=== PATIENT | female | born 1965 | race Caucasian/White ===

== ENCOUNTER 2017-04-16 22:28 | Inpatient (IN) | payer MEDICAID, OTHER ==
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
[2017-04-16 23:02] LABS: BASO # 0.1 K/uL (0.0-0.2); BASO % 0.9 % (0.0-2.0); EOS # 0.1 K/uL (0.0-0.7); HEMATOCRIT 31.2 % (34.0-47.0); LYMPH # 2.8 K/uL (1.0-4.3); LYMPH % 33.1 % (20.0-40.0); MEAN CELL VOLUME 74.9 fL (81.0-99.0); MEAN CORPUSCULAR HEMOGLOBIN 24.6 pg (27.0-31.0); MEAN CORPUSCULAR HGB CONC 32.8 g/dL (33.0-37.0); MEAN PLATELET VOLUME 7.7 fL (7.2-11.7); MONO # 0.5 K/uL (0.0-0.8); MONO % 6.4 % (0.0-10.0); RED CELL DISTRIBUTION WIDTH 16.5 % (11.5-14.5); WHITE BLOOD COUNT 8.4 K/uL (4.8-10.8)
[2017-04-16 23:09] LABS: CHLORIDE 103 mmol/L (98-107); SODIUM 138 mmol/L (132-148)
[2017-04-16 23:11] LABS: BILIRUBIN,TOTAL 0.4 mg/dL (0.2-1.3); GFR AFRICAN-AMERICAN > 60
[2017-04-16 23:12] LABS: ALB/GLOB RATIO 1.3 (1.0-2.1); ALKALINE PHOSPHATASE 64 U/L (38-126); ALT/SGPT 26 U/L (9-52); AST/SGOT 19 U/L (14-36); BLOOD UREA NITROGEN 15 mg/dL (7-17); CALCIUM 9.2 mg/dl (8.6-10.4); CARBON DIOXIDE 23 mmol/L (22-30); GLUCOSE,RANDOM 94 mg/dL (65-105); TOTAL PROTEIN 7.7 g/dL (6.3-8.3)
[2017-04-16 23:13] LABS: ALCOHOL SERUM < 10 mg/dl (0-10)
[2017-04-16 23:47] LABS: RBC URINE 9 /hpf (0-3); URINE BACTERIA MOD (<OCC); URINE BILIRUBIN NEGATIVE (NEGATIVE); URINE BLOOD 1+ (NEGATIVE); URINE COLOR Straw (YELLOW); URINE GLUCOSE (UA) NORMAL (Normal); URINE KETONE NEGATIVE (NEGATIVE); URINE LEUKOCYTE ESTERASE TRACE Leu/uL (Negative); URINE PROTEIN NEGATIVE (NEGATIVE); URINE UROBILINOGEN NORMAL mg/dL (0.2-1.0); WBC URINE 11 /hpf (0-5)
--- NOTE | 2017-04-17 05:37 | PCM.BM ---
Treatment assets and liabiliti Patient Assests: cooperative, educated, insightful, resourceful, self-reliant, ADL independent, negotiates basic needs, strong glenna Patient Liabilities: poor support system, relationship conflicts
--- NOTE | 2017-04-17 05:41 | PCM.BM ---
<Ivis De La Torre - Last Filed: 04/17/17 05:39> Treatment assets and liabiliti Patient Assests: cooperative, educated, insightful, resourceful, self-reliant, ADL independent, negotiates basic needs, strong glenna Patient Liabilities: poor support system, relationship conflicts - Milieu Protocol Maintain good personal hygiene: daily Encourage regular showers, daily Remind patient to perform daily oral care, every other day Encourage regular showers Maintain personal safety: other Educate patient to report safety concerns to staff (prn) Medication safety: Monitor for expected outcome, potential side effects: every shift, daily, Assess barriers to learning: daily, every shift, Assess readiness for medication education: daily, every shift <Bree Rankin - Last Filed: 04/17/17 11:04> Family Contact Family involvement: Family/SO is involved Family contact: Patient declines to allow family contact at present - Goals for Treatment Patient goals for treatment: no comment Discharge/Continuing Care - Education Needs Education Needs: Patient Medication, Patient Coping Skills - Discharge Discharge Criteria: Tolerates medication w/o severe side effects, Free of Suicidal thoughts Discharge to:: Home, With Family - Treatment Team Participation Discussed with Family/SO: No Was Patient/Family/SO present at Treatment Team Meeting: Yes <Lidia Hernandez - Last Filed: 04/17/17 11:11> - Diagnosis (1) Major depressive disorder, recurrent severe without psychotic features Status: Acute Interventions: 04/17/17 11:11 * Assess/adjust medications daily and /or as needed * See patient on an individual basis 7x/week to assess level of depressive behaviors and stability * Discuss risks, benefits, side effects and alternatives of medications *
--- NOTE | 2017-04-17 05:54 | PCM.BM ---
Treatment Plan Problems - Problems identified on initial assessmt Problem 1 Date Initiated: 04/17/17 Status: Active Priority: 1 Problem 3 Date Initiated: 04/17/17 Status: Active Priority: 2 anxiety Status: Active Problem 2 Date Initiated: 04/17/17 Status: Active Treatment assets and liabiliti Patient Assests: cooperative, educated, insightful, resourceful, self-reliant, ADL independent, negotiates basic needs, strong glenna Patient Liabilities: poor support system, relationship conflicts - Milieu Protocol Maintain good personal hygiene: daily Encourage regular showers, daily Remind patient to perform daily oral care, every other day Encourage regular showers Maintain personal safety: other Educate patient to report safety concerns to staff (prn) Medication safety: Monitor for expected outcome, potential side effects: every shift, daily, Assess barriers to learning: daily, every shift, Assess readiness for medication education: daily, every shift
--- NOTE | 2017-04-17 07:18 | RAD ---
PROCEDURE: CHEST RADIOGRAPH, 1 VIEW HISTORY: Detox/Psy COMPARISON: Portable chest 12/03/2015. FINDINGS: LUNGS: Clear. PLEURA: No pneumothorax or pleural fluid seen. CARDIOVASCULAR: Normal. OSSEOUS STRUCTURES: No significant abnormalities. VISUALIZED UPPER ABDOMEN: Normal. OTHER FINDINGS: None. IMPRESSION: No acute cardiopulmonary pulmonary disease or significant interval change.
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
[2017-04-17 16:00] VITALS: RESP 20
--- NOTE | 2017-04-18 09:54 | PCM.PYCHPN ---
Psychiatric Progress Note - Psychiatric Progress Note Patient Chief Complaint: I am feeling depressed and suicidal .' Mental Status Examination - Cognitive Function Orientation: Person, Place, Situation, Time - Mood Mood: Depressed, Anxious - Affect Affect: Constricted, Depressed - Formal Thought Process Formal Thought Process: No Impairment - Homicidal Ideation Homicidal Ideation: No Goal/Treatment Plan - Goal/Treatment Plan Progress Toward Problem(s) and Goals/Treatment Plan: Major depressive disorder recurrent severe without psychotic features CBT Psychoeducation Supportive therapy Paxil 40 gm PO Daily Trazodone 50 mg PO QHS Remeron 15 mg pO QHS
--- NOTE | 2017-04-18 13:00 | CARD ---
APPROVED REPORT EKG Measurement Heart [id number] <Conclusion> Normal sinus rhythm ST & T wave abnormality, consider inferior ischemia Abnormal ECG
[2017-04-19 07:36] VITALS: BP 101/63; PULSE 80; TEMP 97.4
[2017-04-19 08:02] VITALS: O2SAT 99
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
== END 2017-04-19 12:00 | disposition home or self-care (01) | DRG 885 ==
LOC: C.ER 22:28 → EEVIPCON 04-17 00:53 → C.5E 04-17 00:53
PROVIDERS: ADMIT Psychiatry & Neurology Psychiatry; ATTEND Psychiatry & Neurology Psychiatry
PROC: GZ58ZZZ Individual Psychotherapy, Cognitive-Behavioral (ICD-10-PCS; principal; 2017-04-17)
PROC: GZ56ZZZ Individual Psychotherapy, Supportive (ICD-10-PCS; 2017-04-17)
DX: F33.2 Major depressive disorder, recurrent severe without psychotic features (principal); F41.9 Anxiety disorder, unspecified

== ENCOUNTER 2017-12-21 21:58 | Emergency (ER) | payer OTHER ==
[2017-12-21 21:59] VITALS: BMI 22.6
[2017-12-21 22:24] VITALS: BP 142/88; PULSE 94; RESP 20; TEMP 98.1; O2SAT 99
--- NOTE | 2017-12-21 23:10 | C.PDOC ---
History Of Present Illness 52 year old female presents to the ED c/o pain and swelling to her left ankle. Patient reports she missed a step which caused her to trip down stairs and twist her left ankle. 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 Patient denies fever, chill, nausea, vomit, LOC, weakness, numbness. Time Seen by Provider: 12/21/17 22:29 Chief Complaint (Nursing): Lower Extremity Problem/Injury History Per: Patient History/Exam Limitations: no limitations Onset/Duration Of Symptoms: Hrs Current Symptoms Are (Timing): Still Present Recent travel outside of the [place]: No Additional History Per: Patient - Ankle/Foot Description Of Injury: Twisted Currently Unable To: Bend Or Move Alleviating Factor(s): OTC Pain Medication Past Medical History Reviewed: Historical Data, Nursing Documentation, Vital Signs Vital Signs: Last Vital Signs Temp 98.1 F 12/21/17 22:20 Pulse 94 H 12/21/17 22:20 Resp 20 12/21/17 23:13 BP 142/88 12/21/17 22:20 Pulse Ox 99 12/21/17 23:11 - Medical History PMH: Anxiety, Depression Denies: Diabetes, Hepatitis, HIV, HTN, Osteoporosis, Chronic Kidney Disease, Seizures, Sexually Transmitted Disease Surgical History: Coronary Stent - [facility] Procedures INDIVIDUAL PSYCHOTHERAPY, COGNITIVE-BEHAVIORAL (04/17/17) INDIVIDUAL PSYCHOTHERAPY, SUPPORTIVE (04/17/17) MEASURE OF CARDIAC SAMPL & PRESSURE, L HEART, PERC APPROACH (12/04/15) PLAIN RADIOGRAPHY OF LEFT HEART USING LOW OSMOLAR CONTRAST (12/04/15) Family History: States: Unknown Family Hx - Social History Hx Alcohol Use: No Hx Substance Use: No Review Of Systems Constitutional: Negative for: Fever, Chills Eyes: Negative for: Vision Change Cardiovascular: Negative for: Chest Pain Respiratory: Negative for: Shortness of Breath Musculoskeletal: Positive for: Foot Pain Skin: Negative for: Rash Neurological: Negative for: Weakness, Numbness Physical Exam - Physical Exam Appears: Non-toxic, No Acute Distress Skin: Normal Color, Warm, Dry Head: Atraumatic, Normacephalic Eye(s): bilateral: Normal Inspection Extremity: Tenderness (left lateral malleolus), Capillary Refill (<2 seconds), Swelling (minimal left lateral malleolus) Extremity: Bilateral: Normal Color And Temperature, Normal ROM (with a limp due to pain) Pulses: Left Dorsalis Pedis: Normal, Right Dorsalis Pedis: Normal Neurological/Psych: Oriented x3, Normal Speech Gait: Steady (with a limp) ED Course And Treatment O2 Sat by Pulse Oximetry: 99 (ON RA) Pulse Ox Interpretation: Normal - Other Rad Left ankle X-Ray X-Ray: Interpreted by Me, Viewed By Me Interpretation: No fracture or dislocation seen Progress Note: Plan: - Left ankle X-Ray. Patient was placed on an Marvin wrap, was offered curtches but she refused them stating she had a pair at home. On reassessment, patient is resting comfortably, and is in no acute distress. Patient was instructed to follow up with physician/clinic in 1-2 days for further evaluation. Disposition Counseled Patient/Family Regarding: Studies Performed (Ankle XR), Diagnosis, Need For Followup - Disposition Referrals: Eddie Flores MD [Staff Provider] - Disposition: HOME/ ROUTINE Disposition Time: 23:06 Condition: STABLE Additional Instructions: Please follow up with PMD for ortho referral as needed Continue ibuprofen PO Elevate leg/ ICE Return to ER if worse Instructions: Ankle Sprain (DC) Forms: [employer] (Estonian) - Clinical Impression Clinical Impression: Left ankle sprain - PA / DYE FEEDER / Resident Statement MD/DO has reviewed & agrees with the documentation as recorded. - Scribe Statement The provider has reviewed the documentation as recorded by the Scribe Greg Clark All medical record entries made by the Scribe were at my direction and personally dictated by me. I have reviewed the chart and agree that the record accurately reflects my personal performance of the history, physical exam, medical decision making, and the department course for this patient. I have also personally directed, reviewed, and agree with the discharge instructions and disposition.
--- NOTE | 2017-12-22 13:00 | RAD ---
PROCEDURE: Left Ankle Radiographs. HISTORY: Posttraumatic pain COMPARISON: None FINDINGS: BONES: Normal. No fracture. JOINTS: Normal. No osteoarthritis. Ankle mortise maintained. Talar dome intact SOFT TISSUES: Normal. OTHER FINDINGS: None. IMPRESSION: Normal left ankle radiographs. Concordant results with the preliminary interpretation rendered by the emergency department physician procedure.
== END 2017-12-21 23:13 | disposition home or self-care (01) ==
LOC: C.ER 21:58
DX: S93.402A Sprain of unspecified ligament of left ankle, initial encounter (principal); X50.9XXA Other and unspecified overexertion or strenuous movements or postures, initial encounter

== ENCOUNTER 2018-11-11 23:46 | Emergency (ER) | payer SELFPAY ==
[2018-11-11 23:46] VITALS: BMI 22.6
[2018-11-11 23:58] VITALS: BP 142/91; PULSE 89; RESP 18; TEMP 98; O2SAT 100
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
== END 2018-11-12 00:21 | disposition home or self-care (01) ==
LOC: C.ER 23:46
DX: F41.9 Anxiety disorder, unspecified (principal)